=== PATIENT | male | born 1975 | race Caucasian/White ===

== ENCOUNTER 2017-02-01 06:19 | Observation (INO) | payer SELFPAY ==
[2017-02-01 07:14] LABS: #Basophils 0.1 thou/uL (0.0-0.2); #Eosinphils 0.1 thou/uL (0.0-0.7); #Lymphocytes 1.6 thou/uL (1.20-3.40); #Monocytes 0.8 thou/uL (0.11-0.59); #Neutrophils 5.3 thou/uL (1.40-6.50); %Basophils 0.9 % (0.0-1.0); %Eosinophils 1.1 % (0.0-10.0); %Lymphocytes 20.7 % (21.0-51.0); %Neutrophils 67.3 % (42.0-75.0); Hemoglobin 14.9 g/dL (14.0-18.0); Mean Corpuscular HGB CONC 35.3 g/dL (32.0-36.0); Mean Corpuscular Hemoglobin 30.7 pg (27.0-31.0); Platelet Count 235 thou/uL (130-400); RBC Distribution Width 11.3 % (11.5-14.5); Red Blood Cell (RBC) Count 4.85 mill/uL (4.70-6.10); White Blood Cell (WBC) Count 7.9 thou/uL (4.8-10.8)
--- NOTE | 2017-02-01 07:32 | CT ---
CT HEAD NONCONTRAST: History: Altered mental status. FINDINGS: No comparison. There is no evidence of acute intracranial hemorrhage or infarct. The ventricles appe ar normal in size, shape, and position. There is no mass effect or shift of midline structures. Visu alized paranasal sinuses remain well aerated. IMPRESSION: No acute intracranial abnormalities are demonstrated on noncontrast CT head. POS: [facility]
[2017-02-01 07:34] LABS: ALT (SGPT) 30 U/L (8-55); AST (SGOT) 35 U/L (5-34); Acetaminophen Less than 6.0 mcg/mL (10.0-30.0); Albumin 4.2 g/dL (3.5-5.0); Alcohol Less than 10 mg/dL (Less than 10); Alkaline Phosphatase 38 U/L (40-150); Anion Gap 13 mmol/L (10-20); BUN (Urea Nitrogen) 10 mg/dL (8.9-20.6); Calc. Creatinine Clearance 0 mL/min (70-130); Calcium 9.2 mg/dL (7.8-10.44); Carbon Dioxide 26 mmol/L (22-29); Chloride 99 mmol/L (98-107); Estimated GFR-MDRD 80; Globulin 2.9 g/dL (2.4-3.5); Glucose 125 mg/dL (70-105); Protein, Total 7.1 g/dL (6.0-8.3); Salicylate Less than 8.0 mg/dL (15.0-30.0); Sodium 135 mmol/L (136-145)
[2017-02-01 07:36] LABS: Potassium 2.8 mmol/L (3.5-5.1)
[2017-02-01] MEDS ORDERED: Potassium Chloride 20 MEQ TAB ONE (08:00)
[2017-02-01] MEDS ORDERED: Enoxaparin Sodium 40 MG/0.4 ML SYRINGE ONE (09:24)
[2017-02-01] MEDS ORDERED: Ondansetron ODT 4 MG TAB PO PRN (10:02)
[2017-02-01] MEDS ORDERED: Acetaminophen 325 MG TAB PO PRN (10:02)
[2017-02-01 11:30] VITALS: BMI 26.1
[2017-02-01] MEDS: Sodium Chloride 0.9% 1,000 ML IV SCH (11:39)
[2017-02-01 12:01] VITALS: BP 137/72
[2017-02-01 12:05] VITALS: TEMP 97.7
[2017-02-01 12:43] LABS: Anion Gap 12 mmol/L (10-20); BUN (Urea Nitrogen) 8 mg/dL (8.9-20.6); Calc. Creatinine Clearance 115 mL/min (70-130); Calcium 8.9 mg/dL (7.8-10.44); Carbon Dioxide 27 mmol/L (22-29); Chloride 103 mmol/L (98-107); Estimated GFR-MDRD 87; Glucose 109 mg/dL (70-105); Potassium 3.5 mmol/L (3.5-5.1); Sodium 138 mmol/L (136-145)
[2017-02-01] MEDS ORDERED: Sodium Chloride 0.9% 1,000 ML BAG ONE (14:04)
--- NOTE | 2017-02-01 14:04 | HP ---
PRIMARY CARE PHYSICIAN: Unknown. CHIEF COMPLAINT: Not feeling well. HISTORY OF PRESENT ILLNESS: This is a 41-year-old male with unknown past medical history who presented to the emergency room via a personal vehicle with a complaint of not feeling well. Information is obtained from the ER physician and ER nurses as the patient is currently very sleepy and not willing to give any further history. ER physician states he walked in and registered and reported "not feeling well." He was unable to give any further information about what specifically was bothering him or the events leading up to him coming to the emergency room. He was apparently dropped off by a friend with no further reports. There are no family or friends are at bedside at this time. He is arousable to verbal and tactile stimuli, but then goes back to sleep. Therefore, any further history is unobtainable. PAST MEDICAL HISTORY: Per the ER physician, the patient does not report any past medical history, past surgical history or family history that was contributory. MEDICATIONS: No known home medications. SOCIAL HISTORY: ER physician reports patient answered that he has a prior history of cocaine and methamphetamine use, but states he stopped this in 2009. ALLERGIES: Unknown. REVIEW OF SYSTEMS: Unable to obtain. PHYSICAL EXAMINATION: GENERAL: The patient is very drowsy, but arousable to tactile and verbal stimuli. He is not able to give appropriate answers to questions at this time. HEENT: Pupils are equally round and reactive to light. Sclerae are nonicteric. Oropharynx is moist. NECK: Supple, without lymphadenopathy or thyromegaly. HEART: Regular rate and rhythm without murmurs. Negative for peripheral edema. LUNGS: Clear to auscultation bilaterally. The patient is in no respiratory distress. ABDOMEN: Soft, nontender and nondistended with normoactive bowel sounds. EXTREMITIES: Multiple tattoos are noted on the arms. No clubbing, cyanosis or edema. NEUROLOGIC: The patient is drowsy, but arousable to stimuli. Unable to perform full neurologic exam secondary to patient being uncooperative. SKIN: Warm and dry, non-diaphoretic. LABORATORY AND IMAGING DATA: CBC is unremarkable. Chem panel with sodium of 135, potassium of 2.8, chloride is 99, bicarbonate is 26, BUN is 10, creatinine is 1.02, GFR of 80, glucose is 125, magnesium is 1.7 and total bilirubin is 2.0. AST is 35, ALT is 38, alkaline phosphatase is 38, creatinine kinase is 572 and albumin is 4.2. Serum tox screen with negative salicylates, acetaminophen and plasma alcohol levels. EKG, normal sinus rhythm. CT head is normal. ASSESSMENT AND PLAN: 1. Altered mental status. This is a patient who is unknown to our medical practice that presents with acute onset altered mental status and lethargy. The patient reported to the ER doctor that he does have a history of drug abuse with cocaine and methamphetamine, but unfortunately has refused urine drug screen in the emergency room. Labs and imaging have been unremarkable for other etiology of encephalopathy. He will be admitted for close observation to the medical surgical unit and will be given IV fluids and symptomatic care. His vital signs are stable at this time. His CT head is normal. Once the patient is awake, we will attempt to get further history from him. 2. Hypokalemia, unclear etiology. The patient has been given K-Dur x1 in the emergency room. We will repeat a potassium level at noon today and replete as necessary. 3. Mild rhabdomyolysis with creatinine kinase of greater than 500. As above, we will give the patient IV fluids. I suspect the cause of this is due to his altered mental status and likely recumbent position for extended period, possibly 2/2 toxic overdose. 4. Possible history of prior and current drug abuse. As above, we will place the patient on q.2 hours neuro checks and attempt to get a urine drug screen as soon as able. 5. Deep venous thrombosis prophylaxis. None necessary. 6. CODE STATUS: FULL CODE. MTDD
[2017-02-01 15:19] LABS: Amphetamine Detected (NotDetected); Barbiturates Screen Not Detected (NotDetected); Benzodiazepine Screen Not Detected (NotDetected); Cocaine Metabolite Screen Not Detected (NotDetected); Medtox Control Line Valid? VALID (VALID); Methadone Not Detected (NotDetected); Methamphetamine Not Detected (NotDetected); Opiate Screen Not Detected (NotDetected); Oxycodone Screen Not Detected (NotDetected); Phencyclidine (PCP) Not Detected (NotDetected); THC/Cannabinoid Screen Not Detected (NotDetected); Tricyclic Screen Not Detected (NotDetected)
== END 2017-02-01 16:40 | disposition home or self-care (01) ==
LOC: MADERS 06:19 → UNDOADMOB 09:25 → MADMS 09:25
PROVIDERS: ADMIT Family Medicine; ATTEND Family Medicine
DX: R41.82 Altered mental status, unspecified (principal); E87.6 Hypokalemia; M62.82 Rhabdomyolysis; Z88.0 Allergy status to penicillin
CPT/HCPCS: 36415; 70450; 80053; 80306; 80307; 82550; 83735; 85025; 93005; 96360; 96361; 96372; G0378; J1650; J7050